=== PATIENT | male | born 1950 | race Caucasian/White ===

== ENCOUNTER 2017-11-02 08:05 | Emergency (ER) | payer MEDICARE, BC ==
[2017-11-02] MEDS ORDERED: Sodium Chloride 0.9% 10 ML Syringe FLUSH PRN (08:38)
[2017-11-02] MEDS ORDERED: Aspirin 81 MG Tab.Chew PO ONE ×2 (08:40→09:40)
--- NOTE | 2017-11-02 08:43 | EDM.PDOC ---
ED HPI GENERAL MEDICAL PROBLEM - General Chief Complaint: Respiratory Problem Stated Complaint: SOB Time Seen by Provider: 11/02/17 08:20 Source of Information: Reports: Patient History Limitations: Reports: No Limitations - History of Present Illness INITIAL COMMENTS - FREE TEXT/NARRATIVE: 66 y/o M with hx CT approx 6 months ago at which time LAD was stented at 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 Central/R chest, heaviness/pressure, moderate severity, constant, not related to activity or eating. Feels SOB. No cough. No lower extremity pain/swelling. Mild nausea, no vomiting. No provoking/ relieving factor. Took all of his home meds today, not sure what they are (list in our system states plavix and aspirin among others). Feels similar to his prior CT but less severe. Also took nitro x 2 at home with no change in his pain. Right Chest Pain Score (Numeric/FACES): 8 - Related Data Allergies Allergy/AdvReac Type Severity Reaction Status Date / Time No Known Allergies Allergy Verified 11/02/17 08:37 Home Meds: Home Meds Acetaminophen [Tylenol] 650 mg PO ASDIRECTED PRN 05/24/17 [History] Aspirin [Halfprin] 81 mg PO DAILY 05/24/17 [History] Carvedilol [Coreg] 6.25 mg PO BID 05/24/17 [History] Clopidogrel [Plavix] 75 mg PO DAILY 05/24/17 [History] Docusate Sodium [Colace] 100 mg PO ASDIRECTED PRN 05/24/17 [History] Losartan [Cozaar] 50 mg PO BID 05/24/17 [History] Nitroglycerin 0.4 mg SL ASDIRECTED PRN 05/24/17 [History] Rosuvastatin [Crestor] 20 mg PO DAILY 05/24/17 [History] Past Medical History HEENT History: Reports: Impaired Vision Cardiovascular History: Reports: High Cholesterol, Hypertension, CT Oncologic (Cancer) History: Reports: Other (See Below) Other Oncologic History: neck - Past Surgical History HEENT Surgical History: Reports: Tonsillectomy Cardiovascular Surgical History: Reports: Coronary Artery Stent GI Surgical History: Reports: Appendectomy Social & Family History - Tobacco Use Smoking Status *Q: Never Smoker Second Hand Smoke Exposure: No - Caffeine Use Caffeine Use: Reports: Coffee - Alcohol Use Days Per Week of Alcohol Use: 7 Number of Drinks Per Day: 4 Total Drinks Per Week: 28 - Recreational Drug Use Recreational Drug Use: No ED ROS GENERAL - Review of Systems Review Of Systems: See Below Constitutional: Denies: Fever HEENT: Reports: No Symptoms Respiratory: Reports: Shortness of Breath Cardiovascular: Reports: Chest Pain Endocrine: Reports: No Symptoms GI/Abdominal: Denies: Abdominal Pain : Reports: No Symptoms Musculoskeletal: Reports: No Symptoms Skin: Reports: No Symptoms Neurological: Reports: No Symptoms Psychiatric: Reports: No Symptoms Hematologic/Lymphatic: Reports: No Symptoms Immunologic: Reports: No Symptoms ED EXAM, GENERAL - Physical Exam Exam: See Below Exam Limited By: No Limitations General Appearance: Alert, WD/WN, No Apparent Distress Eye Exam: Bilateral Eye: EOMI, Normal Inspection, PERRL Ears: Normal External Exam Nose: Normal Inspection Throat/Mouth: Normal Inspection, Normal Oropharynx, Normal Voice, No Airway Compromise Head: Atraumatic, Normocephalic Neck: Normal Inspection, Supple, Non-Tender Respiratory/Chest: No Respiratory Distress, Lungs Clear, Normal Breath Sounds, No Accessory Muscle Use, Chest Non-Tender Cardiovascular: Normal Peripheral Pulses, Regular Rate, Rhythm, No Edema, No Murmur GI/Abdominal: Soft, Non-Tender, No Distention. No: Rebound Back Exam: Normal Inspection Extremities: Normal Inspection, No Pedal Edema Neurological: Alert, Oriented, Normal Cognition, No Motor/Sensory Deficits Psychiatric: Normal Affect, Normal Mood Skin Exam: Warm, Dry, Intact, Normal Color, No Rash Course - Vital Signs Last Recorded V/S: Last Vital Signs Temp 36.9 C 11/02/17 10:45 Pulse 70 11/02/17 10:45 Resp 16 11/02/17 10:45 BP 165/110 H 11/02/17 10:45 Pulse Ox 99 11/02/17 10:45 - Orders/Labs/Meds Orders: Active Orders 24 hr Category Date Time Status EKG 12 Lead [EKG Documentation Completion] [RC] STAT Care 11/02/17 08:39 Active EKG 12 Lead [EKG Documentation Completion] [RC] STAT Care 11/02/17 09:34 Active Peripheral IV Care [RC] . DIRECTED Care 11/02/17 08:39 Active Peripheral IV Care [RC] . DIRECTED Care 11/02/17 08:39 Active Peripheral IV Insertion Adult [OM.PC] Routine Oth 11/02/17 08:39 Ordered Labs: Laboratory Tests 11/02/17 11/02/17 11/02/17 Range/Units 08:25 08:25 08:25 WBC 8.90 (4.23-9.07) K/mm3 RBC 4.79 (4.63-6.08) M/mm3 Hgb 15.7 (13.7-17.5) gm/L Hct 45.4 (40.1-51.0) % MCV 94.8 H (79.0-92.2) fl MCH 32.8 H (25.7-32.2) pg MCHC 34.6 (32.2-35.5) g/dl RDW Std Deviation 44.4 H (35.1-43.9) fL Plt Count 157 L (163-337) K/mm3 MPV 11.0 (9.4-12.3) fl Neut % (Auto) 76.9 H (34.0-67.9) % Lymph % (Auto) 12.5 L (21.8-53.1) % [place] % (Auto) 9.9 (5.3-12.2) % Eos % (Auto) 0.2 L (0.8-7.0) Baso % (Auto) 0.4 (0.1-1.2) % Neut # (Auto) 6.84 H (1.78-5.38) K/mm3 Lymph # (Auto) 1.11 L (1.32-3.57) K/mm3 [place] # (Auto) 0.88 H (0.30-0.82) K/mm3 Eos # (Auto) 0.02 L (0.04-0.54) K/mm3 Baso # (Auto) 0.04 (0.01-0.08) K/mm3 Sodium 139 (136-145) mEq/L Potassium 4.4 (3.5-5.1) mEq/L Chloride 103 (98-107) mEq/L Carbon Dioxide 24 (21-32) mEq/L Anion Gap 16.4 H (5-15) BUN 13 (7-18) mg/dL Creatinine 1.1 (0.7-1.3) mg/dL Est Cr Clr Drug Dosing 75.66 mL/min Estimated GFR (MDRD) > 60 (>60) mL/min BUN/Creatinine Ratio 11.8 L (14-18) Glucose 111 (80-115) mg/dL Calcium 9.4 (8.5-10.1) mg/dL Magnesium 1.5 L (1.8-2.4) mg/dl Total Bilirubin 1.2 H (0.2-1.0) mg/dL AST 103 H (15-37) U/L ALT 99 H (16-63) U/L Alkaline Phosphatase 88 (46-116) U/L Troponin I 0.198 H* (0.00-0.056) ng/mL NT-Pro-B Natriuret Pep 646 H (0-125) pg/mL Total Protein 7.6 (6.4-8.2) g/dl Albumin 4.3 (3.4-5.0) g/dl Globulin 3.3 gm/dL Albumin/Globulin Ratio 1.3 (1-2) Lipase 104 (73-393) U/L Meds: Medications Discontinued Medications Generic Name Dose Route Start Last Admin Trade Name Freq PRN Reason Stop Dose Admin Aspirin 162 mg 11/02/17 08:40 11/02/17 08:55 Aspirin PO 11/02/17 08:41 162 mg ONETIME ONE Administration Aspirin Confirm 11/02/17 09:29 11/02/17 09:41 Aspirin Administered 11/02/17 09:30 Not Given Dose 81 mg .ROUTE .STK-MED ONE Aspirin 81 mg 11/02/17 09:40 11/02/17 09:42 Aspirin PO 11/02/17 09:41 81 mg ONETIME ONE Administration Heparin Sodium (Porcine) 5,000 units 11/02/17 09:32 11/02/17 09:39 Heparin Sodium IVPUSH 11/02/17 09:33 5,000 units ONETIME ONE Administration Heparin Sodium/Dextrose 25,000 units in 500 mls @ 25.038 mls/hr 11/02/17 09: 45 11/02/17 09:59 Heparin 25,000 Units In D5w 500 Ml IV 12 units/kg/hr TITRATE GABBI 25.038 mls/hr Administration Protocol 12 UNITS/KG/HR Nitroglycerin/Dextrose 25 mg in 250 mls @ 3 mls/hr 11/02/17 09:45 11/02/17 09 :56 Nitroglycerin 25 Mg/D5w 250 Ml IV 5 mcg/min TITRATE GABBI 3 mls/hr Administration Protocol 5 MCG/MIN Labetalol HCl 10 mg 11/02/17 08:48 11/02/17 08:56 Normodyne IVPUSH 11/02/17 08:49 10 mg ONETIME ONE Administration Protocol Metoprolol Tartrate 12.5 mg 11/02/17 09:40 11/02/17 09:48 Lopressor PO 11/02/17 09:41 12.5 mg ONETIME ONE Administration Morphine Sulfate 4 mg 11/02/17 09:34 11/02/17 09:53 Morphine IVPUSH 4 mg Q2H PRN Administration Pain Nitroglycerin 0.4 mg 11/02/17 08:47 11/02/17 08:55 Nitrostat SL 11/02/17 08:48 0.4 mg ONETIME ONE Administration Rosuvastatin Calcium 20 mg 11/02/17 09:39 11/02/17 09:49 Crestor PO 11/02/17 09:40 20 mg ONETIME ONE Administration Sodium Chloride 10 ml 11/02/17 08:38 11/02/17 08:56 Saline Flush FLUSH 10 ml ASDIRECTED PRN Administration Keep Vein Open - Re-Assessments/Exams Free Text/Narrative Re-Assessment/Exam: 11/02/17 09:36 EKG shows NSR, anterior Q waves, lateral T wave flattening, no significant ST abnormality. Trop elevated at 0.198. Patient has been given full dose aspirin. Heparin ordered. Nitro gtt and morphine ordered. No [facility] called at 09:37. Discussed with Dr. Ball (cardiology) who agrees with plan for transfer. Also requests that we give dose of statin and also dose of metoprolol. Repeat EKG shows no significant change. CXR shows normal cardiac silhouette,no acute abnormality. 11/02/17 09:45 Dr. Harkins (ED) accepts patient for transfer. Helicopter dispatched. 11/02/17 15:28 Departure - Departure Time of Disposition: 10:30 Disposition: DC/Tfer to [facility] 02 Clinical Impression: Non-ST elevated myocardial infarction Chest pain Qualifiers: Chest pain type: unspecified Qualified Code(s): R07.9 - Chest pain, unspecified - Discharge Information Referrals: PCP,Not In Area [Primary Care Provider] - Forms: ED Department Discharge Critical Care Note - Critical Care Note Total Time (mins): 30 - My Orders Last 24 Hours: My Active Orders 11/02/17 08:39 EKG 12 Lead [EKG Documentation Completion] [RC] STAT Peripheral IV Care [RC] . DIRECTED Peripheral IV Care [RC] . DIRECTED Peripheral IV Insertion Adult [OM.PC] Routine 11/02/17 09:34 EKG 12 Lead [EKG Documentation Completion] [RC] STAT - Assessment/Plan Last 24 Hours: My Active Orders 11/02/17 08:39 EKG 12 Lead [EKG Documentation Completion] [RC] STAT Peripheral IV Care [RC] . DIRECTED Peripheral IV Care [RC] . DIRECTED Peripheral IV Insertion Adult [OM.PC] Routine 11/02/17 09:34 EKG 12 Lead [EKG Documentation Completion] [RC] STAT
[2017-11-02] MEDS ORDERED: Nitroglycerin 0.4 MG Tab.SL SL ONE (08:47)
[2017-11-02] MEDS ORDERED: Labetalol 100 MG/20 ML MDV IVPUSH ONE (08:48)
[2017-11-02] MEDS ORDERED: Aspirin 81 MG Tab.Chew ONE (09:29)
[2017-11-02] MEDS ORDERED: Heparin Sodium 5,000 Units/ML Vial IVPUSH ONE (09:32)
[2017-11-02] MEDS ORDERED: Morphine 4 MG/ML Syringe IVPUSH PRN (09:34)
[2017-11-02] MEDS ORDERED: Rosuvastatin 10 MG Tab PO ONE (09:39)
[2017-11-02] MEDS ORDERED: Metoprolol Tartrate 25 MG Tab PO ONE (09:40)
[2017-11-02] MEDS ORDERED: Heparin Sodium/D5W 25,000 UNITS/500 ML BAG IV SCH (09:45)
[2017-11-02] MEDS ORDERED: Nitroglycerin/D5W 25 MG/250 ML BOTTLE IV SCH (09:45)
--- NOTE | 2017-11-02 10:08 | CR ---
Chest: Frontal view of the chest was obtained. Comparison: No prior chest x-ray. Heart size and mediastinum are normal. Lungs are clear. Bony structures are grossly intact. Impression: 1. Nothing acute is seen on portable chest x-ray. Diagnostic code #1
== END 2017-11-02 10:35 ==
LOC: JD.ED 08:05
DX: I21.4 Non-ST elevation (NSTEMI) myocardial infarction (principal); E78.00 Pure hypercholesterolemia, unspecified; I10 Essential (primary) hypertension; I25.2 Old myocardial infarction; Z79.899 Other long term (current) drug therapy; Z79.82 Long term (current) use of aspirin; R06.02 Shortness of breath
CPT/HCPCS: 36415; 71045; 80053; 83690; 83735; 83880; 84484; 85025; 93005; 96365; 96368; 96375; 96376; 99285; A9270; J1644; J2270; J7050; 93010; 99291